=== PATIENT | female | born 2000 | race Caucasian/White ===

== ENCOUNTER 2023-05-01 10:01 | Outpatient (OUT) | payer SELFPAY ==
--- NOTE | 2023-05-01 | US_ITS ---
[address] [address] Patient Name: SARITA MARTINEZ MRN: [id number] date: 2000 Sex: F Assigned Patient Location: US Current Patient Location: US Accession/Order Number: [id number] Exam Date: 05/01/2023 10:04 Report Date: 05/01/2023 10:53 At the request of: APRIL ANDRADE Procedure: US OB transvaginal EXAMINATION: US OB transvaginal HISTORY: MISSED MENSES COMPARISON: No relevant comparison available. FINDINGS: Kidd intrauterine gestation Gestational sac: 2.1 cm, 7 weeks 4 days CRL: 1.3 cm, 7 weeks 3 days Yolk sac: 4.4 mm Heart rate: 160 bpm Cervix: Closed, 4.5 cm The uterus is normal, anteverted, anteflexed The ovaries are normal Clinical age: 9 weeks 4 days Clinical LILIANA: 11/30/2023 Ultrasound age: 7 weeks 3 days Ultrasound LILIANA: 12/15/2023 US/US OB transvaginal IMPRESSION: Viable kidd intrauterine gestation measuring 7 weeks 3 days Electronically authenticated by: MARY JO JOHNSON Date: 05/01/2023 10:53
== END 2023-05-01 10:02 | disposition home or self-care (01) ==
LOC: US 10:02
PROVIDERS: Visit Provider Obstetrics & Gynecology
DX: Z34.81 Encounter for supervision of other normal pregnancy, first trimester (principal); Z3A.01 Less than 8 weeks gestation of pregnancy; N92.6 Irregular menstruation, unspecified
CPT/HCPCS: 76817

== ENCOUNTER 2023-06-17 13:59 | Outpatient (OUT) | payer SELFPAY ==
--- OUTSIDE RECORDS SUMMARY | 2023-06-17 14:11 | XMS_ITS | CCD ---
Author Name Unknown Address [address] [place] [address] Organization [facility] Care Team Providers Care Computer Systems Security Administrator Name Role Phone APRIL ANDRADE Admitting Unavailable APRIL ANDRADE Attending Unavailable APRIL ANDRADE Consulting Unavailable RAYMOND, APRIL Attending Unavailable Problems Active Problems Problem Classification Problem Date Documented Da te Episodic/Chronic Residual codes; unclassified (1 source) 38 weeks gestation of ; 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: [38 WEEKS GESTATION OF ] Onset: 01-23-2017 Past or Other Problems Problem Classification Problem Date Documented Da te Episodic/Chronic Other aftercare (1 source) [facility] (current) use of anticoagulants; 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: [INTERMEDIATE CURRNT USE 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] Onset: 01-23-2017 Episodic Other circulatory disease (1 source) Personal history of transient ischemic attack (TIA), and cerebral infarction without residual deficits; 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: [PERS HX TIA AND CI NO RESID DEFICIT] Onset: 01-23-2017 Episodic Other complications of (4 sources) Other specified diseases and conditions complicating , childbirth and the puerperium; 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: [OTH DZ COMP PREG CHILDBIRTH PUERPER] Onset: 01-20-2017 Episodic Other complications of (1 source) Supervision of young primigravida, third trimester; 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: [SUP YOUNG PRIMIGRAVIDA THIRD TRI] Onset: 01-23-2017 Episodic Encounters Encounter Date Encounter Type Care Provider Facility Start: 06-01-2023 End: 06-01-2023 ambulatory APRIL RAYMOND Not Available Start: 05-01-2023 End: 05-01-2023 ambulatory APRIL RAYMOND Not Available Start: 01-20-2017 End: 01-20-2017 Patient encounter procedure APRIL RAYMOND Facility: Payers Date Payer Category Payer Unknown [id number] 2001 Unknown [id number] 1981 Unknown [id number] 1959 Unknown [id number] Summary Purpose Family History No Family History Records FoundNo Family History Records Found Advance Directives No Advanced Directives Records FoundNo Advanced Directives Records Found Additional Source Comments INFORMATION SOURCE (unrecogn ized section and content) DATE CREATED AUTHOR 07/31/2018 [facility] DATE CREATED AUTHOR AUTHOR'S ORGANIZ ATZHANNA 06/01/2023 [facility] FOR RECORDS PERTAINING TO PATIENTS WHO ARE OR HAVE BEEN ENROLLED IN A CHEMICAL DEPENDENCY/SUBSTANCEABUSE PROGRAM, SOME INFORMATION MAY BE OMITTED. This clinical summary was aggregated from multiple sources. Caution should be exercised in using it in the provision of clinical care. This summary normalizes information from multiple sources, and as a consequence, information in this document may materially change the coding, format and clinical context of patient data. In addition, data may be omitted in some cases. CLINICAL DECISIONS SHOULD BE BASED ON THE PRIMARY CLINICAL RECORDS. [facility] [employer] provides no warranty or guarantee of the accuracy or completeness of information in this document.
[2023-06-17 15:04] LABS: Estimated Average Glucose 91 mg/dL; Glycohemoglobin A1C 4.8 % (4.5-6.2)
[2023-06-17 15:44] LABS: Thyroid Stimulating Hormone 0.694 uIU/mL (0.358-3.740)
[2023-06-17 15:45] LABS: Basophils Absolute Auto 0.1 10^3/uL (0.0-0.1); Basophils Percent Auto 0.6 % (0.2-2.0); Eosinophils Absolute Auto 0.1 10^3/uL (0.0-0.7); Hematocrit 41.6 % (36.0-48.0); Hemoglobin 14.1 g/dL (12.0-16.0); Immature Granulocytes Abs Auto 0.03 10^3/uL (0.00-0.03); Immature Granulocytes Pct Auto 0.3 % (0.0-0.5); Lymphocytes Absolute Auto 1.7 10^3/uL (1.2-3.8); Lymphocytes Percent Auto 17.2 % (20.5-60.0); Mean Corpuscular HGB Conc 33.9 g/dL (29.9-35.2); Mean Corpuscular Hemoglobin 28.4 pg (26.7-34.0); Mean Corpuscular Volume 83.7 fL (81.0-99.0); Monocytes Absolute Auto 0.5 10^3/uL (0.3-0.8); Monocytes Percent Auto 4.9 % (1.7-12.0); Neutrophils Absolute Auto 7.4 10^3/uL (1.4-6.5); Platelet Count 231 10^3/uL (150-450); Red Blood Count 4.97 10^6/uL (4.20-5.40); Red Cell Distribution Width 13.4 % (11.0-15.0); White Blood Count 9.7 10^3/uL (4.0-11.0)
[2023-06-18 06:10] LABS: HIV Ab/p24 Ag Screen Non Reactive (Non Reactive); Rubella Antibodies, IgG 9.21 index (Immune >0.99)
[2023-06-18 07:11] LABS: HCV Ab Non Reactive (Non Reactive)
[2023-06-18 08:11] LABS: HBsAg Screen Negative (Negative)
[2023-06-18 10:09] LABS: Rapid Plasma Reagin, Quant Non Reactive titer (NonRea<1:1)
== END 2023-06-17 14:00 | disposition home or self-care (01) ==
LOC: LAB 14:00
PROVIDERS: Visit Provider Obstetrics & Gynecology
DX: N92.6 Irregular menstruation, unspecified (principal); Z36.0 Encounter for antenatal screening for chromosomal anomalies
CPT/HCPCS: 36415; 83036; 84443; 85025; 86592; 86762; 86803; 86850; 86900; 86901; 87086; 87340; 87389

== ENCOUNTER 2023-06-29 19:48 | Outpatient (REF) | payer SELFPAY ==
--- OUTSIDE RECORDS SUMMARY | 2023-06-29 19:52 | XMS_ITS | CCD ---
Author Name Unknown Address [address] [place] [address] Organization [facility] Care Team Providers Care Sales And Leasing Consultant Name Role Phone APRIL LIN Admitting Unavailable APRIL LIN Attending Unavailable APRIL LIN Consulting Unavailable APRIL LIN Attending Unavailable Zak Seals MD Primary Care Provider Problems Active Problems Problem Classification Problem Date Documented Da te Episodic/Chronic Other and delivery including normal (1 source) Second trimester ; 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: [Encounter for supervision of normal , unspecified, second trimester] 06-24-2023 Episodic Other screening for suspected conditions (not mental disorders or infectious disease) (1 source) Patient encounter status; 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: [Encounter for other specified screening] 06-29-2023 Episodic Residual codes; unclassified (1 source) 38 weeks gestation of ; 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: [38 WEEKS GESTATION OF ] Onset: 01-23-2017 Past or Other Problems Problem Classification Problem Date Documented Da te Episodic/Chronic Other aftercare (1 source) 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) use of anticoagulants; 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: [MAIL ROOM CURRNT USE 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] Onset: 01-23-2017 Episodic Other [...] YOUNG PRIMIGRAVIDA THIRD TRI] Onset: 01-23-2017 Episodic Results Test Name Value Interpretation Reference Range Facil ity Urinalysis macro (dipstick) panel (U)on 06-29-2023 Bilirubin, UA Negative Negative - 4(7 0) +++ mg/dL [facility] Blood, UA Negative Negative - 50 Mikey/mcL [facility] Clarity, UA Clear [facility] Color, UA Yellow [facility] Glucose, UA Negative Negative - 1999 (110) ++++ mg/dL [facility] Interpretation and review of laboratory results Normal [facility] Ketones, UA Negative Negative - 160( 16) ++++ mg/dL [facility] Leukocytes, UA Negative Negative - 50 0+++ Yoel/mcL [facility] Nitrite, UA Negative Negative - Positive [facility] pH, UA 5.5 5 - 9 [facility] Protein, UA Trace Negative - 1999 (20) ++++ mg/dL [facility] Spec Grav, UA 1.020 1 - 1.03 [facility] Urobilinogen, UA 1.0 0.2 - 12 mg/dL [facility] Vital Signs Date Time Vital Sign Value Performing Clinician [facility] 06-29-2023 09:34-0500 Body mass index (BMI) [Ratio] 26.06 kg/m2 Aparna DE LOS SANTOS Work Phone: [facility] 06-29-2023 09:34-0500 Body weight 68.86 kg Aparna DE LOS SANTOS Work Phone: [facility] 06-29-2023 09:34-0500 Diastolic blood pressure 72 mm[Hg] Aparna DE LOS SANTOS Work Phone: [facility] 06-29-2023 09:34-0500 Systolic blood pressure 106 mm[Hg] Aparna DE LOS SANTOS Work Phone: [facility] Encounters Encounter Date Encounter Type Care Provider Facility Start: 06-29-2023 End: 06-29-2023 Patient encounter procedure Aparna DE LOS SANTOS Work Phone: [facility] Start: 06-29-2023 End: 06-29-2023 Periodic preventive med est patient 18-39 yrs Aparna DE LOS SANTOS Work Phone: [facility] OB Comment on above: Second trimester pre gnancy; Screening, , for anatomic survey; Well woman exam with routine gynecological exam Start: 06-01-2023 End: 06-01-2023 ambulatory APRIL SPENCEO Not Available Start: 05-01-2023 End: 05-01-2023 ambulatory APRIL ALBRIGHTZIO Not Available Start: 01-20-2017 End: 01-20-2017 Patient encounter procedure APRIL ALBRIGHTZIO Facility: Procedures Date Procedure Procedure Detail Performing Clinician Start: 06-29-2023 Urnls dip stick/tabl et rgnt non-auto w/o micrscp Aparna DE LOS SANTOS Work Phone: Plan of Treatment Date Care Activity Detail Author Start: 07-28-2023 End: 07-28-2023 Patient encounter procedure 07/28/2023 10:40 AM EDT Routine [facility] [address] [place] [id number] April Lin, DO [address] [place], [place] [id number] [facility] Start: 07-28-2023 End: 07-28-2023 Professional / ancillary services management 07/28/2023 9:30 AM EDT Ancillary Procedure [facility] [address] [place] [id number] [facility] Start: 06-29-2023 End: 09-27-2023 Alpha fetoprotein, maternal Alpha fetoprotein, maternal Lab Routine Screening, , for anatomic survey Expected: 06/29/2023 (Approximate), Expires: 09/27/2023 [facility] Comment on above: Expected: 06/29/2023 (Approximate), Expires: 09/27/2023 Start: 06-29-2023 End: 06-29-2024 US for US OB ANATOMY SINGLE W US OB CERVICAL LENGTH Imaging Routine Screening, , for anatomic survey Expected: 06/29/2023 (Approximate), Expires: 06/29/2024 [facility] Comment on above: Expected: 06/29/2023 (Approximate), Expires: 06/29/2024 Cytology Cervical or vaginal smear or scraping study Pap Smear Pathology and Cytology Routine Well woman exam with routine gynecological exam Ordered: 06/29/2023 [facility] Work Phone: Comment on above: Ordered: 06/29/2023 Payers Date Payer Category Payer Medicaid [employer] [place] [employer] [id number] 2023-Present [address] [place] [address] [id number] 2001 Unknown [id number] 2001 Unknown [id number] 1981 Unknown [id number] 1959 Unknown [id number] Social History Date Type Detail Facility Tobacco smoking stat [facility] Tobacco smoking consumption unknown [facility] Start: 06-29-2023 Alcohol intake Defer [facility] Start: 03-24-2023 [facility] Start: 2000 Sex Assigned At Not on file [facility] Gender identity Not on file [facility] are History of Present illness Narrative 06-29-2023 MAGALI Black - 06/29/2023 9:30 AM EST Note Date & Type Note Facility 06-29-2023 History of Presen t illness Narrative Reason for Appointment: Patient ID: Miracle Huffman is a 23 y.o. female who presents for Routine Visit Patient presents today for Annual Exam and Return OB appointment. Current Medications: currently has no medications in their medication list. Medical History: Active Ambulatory Problems Diagnosis Date Noted No Active Ambulatory Problems Resolved Ambulatory Problems Diagnosis Date Noted No Resolved Ambulatory Problems Past Medical History: Diagnosis Date H/O: stroke No family history on file. Social History Tobacco Use Smoking status: Not on file Smokeless tobacco: Not on file Substance Use Topics Alcohol use: Defer Drug use: Not on file Past Surgical History: Procedure Laterality Date CT ANGIOGRAM NECK 05/17/2012 CT ANGIOGRAM NECK MR ANGIOGRAM HEAD W IV CONTRAST 05/16/2012 MR VENOUS HEAD W/ MR ANGIOGRAM HEAD W IV CONTRAST 05/19/2012 MR VENOUS HEAD W/ MR ANGIOGRAM HEAD WO IV CONTRAST 05/24/2012 MR ANGIOGRAM HEAD WO IV CONTRAST No Known Allergies Review of Systems: Review of Systems Constitutional: Negative. HENT: Negative. Eyes: Negative. Respiratory: Negative. Cardiovascular: Negative. Gastrointestinal: Negative. Genitourinary: Negative. Musculoskeletal: Negative. Skin: Negative. Neurological: Negative. All other systems reviewed and are negative. Hematological: Negative. Endocrine: Negative. Allergic/Immunologic: Negative. Objective Physical Exam Constitutional: Appearance: Normal appearance. She is normal weight. HENT: Head: Normocephalic. Cardiovascular: Rate and Rhythm: Normal rate. Pulses: Normal pulses. Pulmonary: Effort: Pulmonary effort is normal. Breath sounds: Normal breath sounds. Abdominal: Palpations: Abdomen is soft. Musculoskeletal: General: Normal range of motion. Neurological: General: No focal deficit present. Mental Status: She is alert and oriented to person, place, and time. Psychiatric: Mood and Affect: Mood normal. Behavior: Behavior normal. Thought Content: Thought content normal. Judgment: Judgment normal. Vitals and nursing note reviewed. Vitals: Estimated body mass index is 26.06 kg/m as calculated from the following: Height as of 02/24/23: 5' 4 . Weight as of this encounter: 151 lb 12.8 oz. BP: 106/72 Patient's last menstrual period was 02/23/2023. Assessment/Plan Encounter Diagnoses Name Primary? Second trimester Screening, , for anatomic survey Well woman exam with routine gynecological exam Patient presents today for an annual exam/routine obstetrics appointment. Patient is currently 15w6d . Patient is doing well and states she has no complaints. Pap/cultures was obtained without difficulty and patient was given [facility] order to have obtained. Follow Up: Patient is to return to our office in 4 weeks for routine OB appointment Documented by Liz Hernandez LPN on behalf of: MAGALI Black documented in this encounter [facility] Evaluation note Note Date & Type Note Facility Evaluation note Diagnosis Second trimester state, incidental Screening, , for anatomic survey Encounter for anatomic survey Well woman exam with routine gynecological exam Routine gynecological examination documented in this encounter [facility] Summary Purpose Family History No Family History Records FoundNo Family History Records Found Advance Directives No Advanced Directives Records FoundNo Advanced Directives Records Found Additional Source Comments INFORMATION SOURCE (unrecogn ized section and content) DATE CREATED AUTHOR 07/31/2018 [facility] DATE CREATED AUTHOR AUTHOR'S ORGANIZ ATION 06/01/2023 [facility] Specialists [employer] Reason for Visit (unrecogniz ed section and content) Reason Comments Routine Visit Care Teams (unrecognized sec tion and content) Sales And Leasing Consultant Relationship Specialty Start Date End Date Zak Seals MD [address] [place] [address] PCP - General Family Medicine 02/24/23 FOR RECORDS PERTAINING TO PATIENTS WHO ARE [...] BE BASED ON THE PRIMARY CLINICAL RECORDS. [facility] [employer] [facility]. provides no warranty or guarantee of the accuracy or completeness of information in this document.
[2023-07-03 11:12] LABS: Age Gdln ACOG Testing Note (.); IGP, rfx Aptima HPV ASCU Note (.)
== END 2023-06-29 19:49 | disposition home or self-care (01) ==
LOC: LAB 19:48
PROVIDERS: Visit Provider Physician Assistant
DX: Z01.419 Encounter for gynecological examination (general) (routine) without abnormal findings (principal)
CPT/HCPCS: G0145

== ENCOUNTER 2023-07-28 09:15 | Outpatient (OUT) | payer OTHER, SELFPAY ==
--- NOTE | 2023-07-28 09:16 | US_ITS ---
[address] [address] Patient Name: SARITA MARTINEZ MRN: [id number] date: 2000 Sex: F Assigned Patient Location: [facility] Current Patient Location: LAB Accession/Order Number: [id number] Exam Date: 07/28/2023 09:17 Report Date: 07/28/2023 11:25 At the request of: TREY KRAUSE Procedure: US OB cervical length EXAMINATION: US OB anatomy, US OB cervical length HISTORY: ANATOMY COMPARISON: No relevant comparison available. TECHNIQUE: Transabdominal sonographic examination was performed for obstetrical and evaluation. FINDINGS: Number: 1 Heart Rate: 151.0 bpm H.B. /min Amniotic Fluid Volume: Subjectively normal Placental Location: Posterior, the placental edge is 4.1 cm from the internal os, grade 0 Cervix Length: 5 cm , closed Normal anatomy: Lateral ventricles, cerebellum, posterior fossa, nose, lips, orbits, four-chamber heart, RVOT, LVOT, diaphragm, stomach, kidneys, abdominal cord insertion, bladder, umbilical arteries, three-vessel cord, spine, extremities BIOMETRY: BPD: 4.8 cm 20 weeks 3 days , 70% HC: 18.2 cm 20 weeks 4 days, 69% AC: 14.8 cm 20 weeks 0 days, 46% FL: 3.5 cm 20 weeks 6 days , 74% EFW:355.1 grams; 13 ounces, 72% FL/AC: 23.4 FL/BPD: 72.2 HC/AC: 1.2 GESTATIONAL AGE: Age by EDC: 20 weeks 0 days Age by current US: 20 weeks 3 days LILIANA by current US: 12/12/2023 LILIANA by EDC: 12/15/2023 US/US OB cervical length IMPRESSION: Normal anatomy scan Closed cervix measuring 5 cm in length *Reference: [employer] Practice Guideline for the performance of Obstetric Ultrasound Examinations, February 15, 2007. Electronically authenticated by: MARY JO JOHNSON Date: 07/28/2023 11:25
--- NOTE | 2023-07-28 09:17 | US_ITS ---
[address] [address] Patient Name: SARITA MARTINEZ MRN: [id number] date: 2000 Sex: F Assigned Patient Location: [facility] Current Patient Location: LAB Accession/Order Number: [id number] Exam Date: 07/28/2023 09:17 Report Date: 07/28/2023 11:25 At the request of: TREY KRAUSE Procedure: US OB anatomy EXAMINATION: US OB anatomy, US OB cervical length HISTORY: ANATOMY COMPARISON: No relevant comparison available. TECHNIQUE: Transabdominal sonographic examination was performed for obstetrical and evaluation. FINDINGS: Number: 1 Heart Rate: 151.0 bpm H.B. /min Amniotic Fluid Volume: Subjectively normal Placental Location: Posterior, the placental edge is 4.1 cm from the internal os, grade 0 Cervix Length: 5 cm , closed Normal anatomy: Lateral ventricles, cerebellum, posterior fossa, nose, lips, orbits, four-chamber heart, RVOT, LVOT, diaphragm, stomach, kidneys, abdominal cord insertion, bladder, umbilical arteries, three-vessel cord, spine, extremities BIOMETRY: BPD: 4.8 cm 20 weeks 3 days , 70% HC: 18.2 cm 20 weeks 4 days, 69% AC: 14.8 cm 20 weeks 0 days, 46% FL: 3.5 cm 20 weeks 6 days , 74% EFW:355.1 grams; 13 ounces, 72% FL/AC: 23.4 FL/BPD: 72.2 HC/AC: 1.2 GESTATIONAL AGE: Age by EDC: 20 weeks 0 days Age by current US: 20 weeks 3 days LILIANA by current US: 12/12/2023 LILIANA by EDC: 12/15/2023 US/US OB anatomy IMPRESSION: Normal anatomy scan Closed cervix measuring 5 cm in length *Reference: [employer] Practice Guideline for the performance of Obstetric Ultrasound Examinations, February 15, 2007. Electronically authenticated by: MARY JO JOHNSON Date: 07/28/2023 11:25
== END 2023-07-28 09:16 | disposition home or self-care (01) ==
LOC: NOMS 09:15
PROVIDERS: Visit Provider Physician Assistant
DX: Z36.89 Encounter for other specified antenatal screening (principal); Z3A.20 20 weeks gestation of pregnancy
CPT/HCPCS: 76805; 76817

== ENCOUNTER 2023-07-28 11:22 | Outpatient (OUT) | payer OTHER, SELFPAY ==
[2023-07-31 02:07] LABS: AFP Value 59.1 ng/mL (.); Gestat. Age Based On Ultrasound (.); Insulin Dep Diabetes No (.); Maternal Age At EDD 22.8 yr (.); OSBR Risk 1 IN 10000 (.); Results Report (.)
== END 2023-07-28 11:23 | disposition home or self-care (01) ==
PROVIDERS: Visit Provider Obstetrics & Gynecology
DX: Z34.92 Encounter for supervision of normal pregnancy, unspecified, second trimester (principal); Z36.89 Encounter for other specified antenatal screening; Z3A.20 20 weeks gestation of pregnancy
CPT/HCPCS: 36415; 76805; 76817; 82105

== ENCOUNTER 2023-09-23 11:47 | Outpatient (OUT) | payer OTHER, SELFPAY ==
[2023-09-23 13:45] LABS: Glucose 1 Hour 108 mg/dL (<130)
[2023-09-23 13:50] LABS: Basophils Percent Auto 0.4 % (0.2-2.0); Eosinophils Absolute Auto 0.1 10^3/uL (0.0-0.7); Eosinophils Percent Auto 1.2 % (0.9-7.0); Immature Granulocytes Abs Auto 0.03 10^3/uL (0.00-0.03); Immature Granulocytes Pct Auto 0.3 % (0.0-0.5); Lymphocytes Absolute Auto 1.5 10^3/uL (1.2-3.8); Lymphocytes Percent Auto 16.6 % (20.5-60.0); Mean Corpuscular HGB Conc 33.3 g/dL (29.9-35.2); Mean Corpuscular Hemoglobin 27.6 pg (26.7-34.0); Mean Corpuscular Volume 82.9 fL (81.0-99.0); Mean Platelet Volume 11.7 fL (9.5-13.5); Monocytes Absolute Auto 0.5 10^3/uL (0.3-0.8); Neutrophils Percent Auto 76.5 % (43.0-75.0); Platelet Count 223 10^3/uL (150-450); Red Blood Count 3.98 10^6/uL (4.20-5.40); Red Cell Distribution Width 12.1 % (11.0-15.0); White Blood Count 9.2 10^3/uL (4.0-11.0)
== END 2023-09-23 11:48 | disposition home or self-care (01) ==
LOC: LAB 11:49
PROVIDERS: Visit Provider Physician Assistant
DX: Z13.1 Encounter for screening for diabetes mellitus (principal)
CPT/HCPCS: 36415; 82950; 85025

== ENCOUNTER 2023-11-18 21:18 | Outpatient (REF) | payer OTHER, SELFPAY ==
--- OUTSIDE RECORDS SUMMARY | 2023-11-18 21:23 | XMS_ITS ---
Patient Summarization (C-CDA 2.1 CCD) Created on: November 18, 2023 MIRACLE HUFFMAN : 2000 Sex: Female Author Organization Sample organization Care Team Providers Care Ordnance Mechanic Name Role Phone RAYMOND, APRIL Admitting Unavailable RAYMOND, APRIL Attending Unavailable RAYMOND, APRIL Consulting Unavailable Mary Jo Rondon MD Primary Care Provider RAYMOND, APRIL Attending Unavailable NELIDA, APARNA Attending Unavailable RAYMOND, APRIL Attending Unavailable NELIDA, APARNA Attending Unavailable RAYMOND, APRIL Attending Unavailable RAYMOND, APRIL Attending Unavailable NELIDA, APARNA Attending Unavailable RAYMOND, APRIL Attending Unavailable MAGUE HOU Referring Unavailable MARY JO RONDON Primary Care Unavailable Encounters Encounter Date Encounter Type Care Provider Facility Start: 11-04-2023 End: 11-04-2023 ambulatory APRIL RAYMOND Not Available Start: 10-21-2023 End: 10-21-2023 ambulatory APARNA NELIDA Not Available Start: 10-06-2023 End: 10-06-2023 ambulatory APRIL RAYMOND Not Available Start: 09-23-2023 End: 09-23-2023 ambulatory APRIL RAYMOND Not Available Start: 08-27-2023 End: 08-27-2023 ambulatory MAGUE HOU [facility] Start: 08-26-2023 End: 08-26-2023 ambulatory APARNA NELIDA Not Available Start: 07-28-2023 End: 07-28-2023 ambulatory APRIL RAYMOND Not Available Start: 06-29-2023 External Result Encounter Aparna DE LOS SANTOS Work Phone: [facility] External Department Unsolicited Start: 06-29-2023 External Result Encounter Aparna DE LOS SANTOS Work Phone: [facility] External Department Unsolicited Start: 06-29-2023 End: 06-29-2023 Patient encounter procedure Aparna DE LOS SANTOS Work Phone: [facility] Start: 06-29-2023 End: 06-29-2023 Periodic preventive med est patient 18-39 yrs Aparna DE LOS SANTOS Work Phone: [facility] Comment on above: Second trimester pre gnancy; Screening, , for anatomic survey; Well woman exam with routine gynecological exam Start: 06-29-2023 End: 06-29-2023 ambulatory APARNA MONTGOMERYEY Not Available Start: 06-01-2023 End: 06-01-2023 ambulatory APRIL SPENCEO Not Available Start: 05-01-2023 End: 05-01-2023 ambulatory APRIL RAYMOND Not Available Start: 01-20-2017 End: 01-20-2017 Patient encounter procedure APRIL RAYMOND Facility: Payers Date Payer Category Payer Medicaid [id number] 2000 Unknown [id number] 2.16.84 [id number] 2001 Unknown [id number] 2.16.84 0.1.985960.3.579.2.1258 2001 Unknown [id number] 2.16.84 0.1.203607.3.579.2.1258 2001 Unknown [id number] 2.16.84 0.1.958579.3.579.2.1258 2001 Unknown [id number] 2.16.84 0.1.325121.3.579.2.1259 2001 Unknown [id number] 2.16.84 0.1.964830.3.579.2.1258 2001 Unknown [id number] 2.16.84 0.1.928997.3.579.2.1258 2001 Unknown [id number] 2.16.84 0.1.260098.3.579.2.1258 2001 Unknown [id number] 2.16.840 .1.598522.3.579.2.1259 2001 Unknown [id number] 2.16. [id number] 1981 Unknown [id number] 2.16.84 0.1.226157.3.579.2.593 1959 Unknown [id number] Plan of Treatment Date Care Activity Detail Author Start: 07-28-2023 End: 07-28-2023 Patient encounter procedure 07/28/2023 10:40 AM EDT Routine [facility] [address] [id number] April Lin, DO [address] [place], [place] [id number] [facility] Start: 07-28-2023 End: 07-28-2023 Professional / ancillary services management 07/28/2023 9:30 AM EDT Ancillary Procedure [facility] [address] [place] [id number] [facility] Start: 06-29-2023 End: 09-27-2023 Alpha fetoprotein, maternal Alpha fetoprotein, maternal Lab Routine Screening, , for anatomic survey Expected: 06/29/2023 (Approximate), Expires: 09/27/2023 [facility] Comment on above: Expected: 06/29/2023 (Approximate), Expires: 09/27/2023 Start: 06-29-2023 End: 06-29-2024 US for US OB ANATOMY SINGLE W US OB CERVICAL LENGTH Imaging Routine Screening, , for anatomic survey Expected: 06/29/2023 (Approximate), Expires: 06/29/2024 [facility] Comment on above: Expected: 06/29/2023 (Approximate), Expires: 06/29/2024 Cytology Cervical or vaginal smear or scraping study Pap Smear Pathology and Cytology Routine Well woman exam with routine gynecological exam Ordered: 06/29/2023 [facility] Work Phone: Comment on above: Ordered: 06/29/2023 Problems Active Problems Problem Classification Problem Date Documented Da te Episodic/Chronic Contraceptive and procreative management (2 sources) Encounter of female for testing for genetic disease carrier status for procreative management; 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: [Encounter of female for testing for genetic disease carrier status for procreative management] Onset: 08-27-2023 Episodic Other complications of (2 sources) Supervision of other high risk pregnancies, second trimester; 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: [Supervision of other high risk pregnancies, second trimester] Onset: 08-27-2023 Episodic Other and delivery including normal (1 source) [...] Da te Episodic/Chronic Other aftercare (1 source) 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; 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: [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] Onset: 01-23-2017 Episodic Other [...] YOUNG PRIMIGRAVIDA THIRD TRI] Onset: 01-23-2017 Episodic Procedures Date Procedure Procedure Detail Performing Clinician Start: 06-29-2023 URETHRITIS/DISCHARGE PLUS VAGINITIS (HTRX) Aparna DE LOS SANTOS Work Phone: Start: 06-29-2023 Urnls dip stick/tabl et rgnt non-auto w/o micrscp Aparna DE LOS SANTOS Work Phone: Results Test Name Value Interpretation Reference Range Facil ity Miscellaneouson 08-28-2023 Send Out Report FORWARD TO [facility] Comment on above: Performed By: #### C MIS #### [facility] [employer] [address] [place], [place] [id number] Gettering Operator: Arturo Chapin MD Miscellaneouson 08-27-2023 Test Name [facility] Comment on above: Performed By: #### C MIS #### [facility] [employer] [address] [place], [place] [id number] Gettering Operator: Arturo Chapin MD URETHRITIS/DISCHARGE PLUS VA GINITIS (HTRX)on 07-01-2023 ATOPOBIUM VAGINAE 0 [facility] ATOPOBIUM VAGINAE [facility]3 (BACTERIAL VAGINOSIS ASSOCIATED BACTERIA 2, 3); MOBILUNCUS SPP 0 [facility] BVAB 2,3 (BACTERIAL VAGINOSIS ASSOCIATED BACTERIA 2, 3); MOBILUNCUS SPP Not detected [facility] FELIPE ALBICANS, PARAPSILOSIS, TROPICALIS 0 [facility] FELIPE ALBICANS, PARAPSILOSIS, TROPICALIS Not detected [facility] FELIPE GLABRATA 0 [facility] FELIPE GLABRATA Not detected [facility] FELIPE KRUSEI 0 [facility] FELIPE KRUSEI Not detected N[facility] CHLAMYDIA TRACHOMATIS 0 [facility] CHLAMYDIA TRACHOMATIS Not detected N [facility] GARDNERELLA VAGINALIS 0 [facility] GARDNERELLA VAGINALIS Not detected [facility] MEGASPHAERA (TYPES 1, 2) 0 [facility] MEGASPHAERA (TYPES 1, 2) Not detected [facility] MYCOPLASMA GENITALIUM 0 [facility] MYCOPLASMA GENITALIUM Not detected [facility] NEISSERIA GONORRHOEAE 0 [facility] NEISSERIA GONORRHOEAE Not detected N [facility] TRICHOMONAS VAGINALIS 0 [facility] TRICHOMONAS VAGINALIS Not detected [facility] Urinalysis macro (dipstick) panel (U)on 06-29-2023 Bilirubin, UA Negative Negative - 4(70) +++ mg/dL [facility] Blood, UA Negative Negative - 50 Mikey/mcL [facility] Clarity, UA Clear [facility] Color, UA Yellow [facility] Glucose, UA Negative Negative - 2000(110) ++++ mg/dL [facility] Interpretation and review of laboratory results Normal [facility] Ketones, UA Negative Negative - 160(16) ++++ mg/dL [facility] Leukocytes, UA Negative Negative - 500+++ Yoel/mcL [facility] Nitrite, UA Negative Negative - Positive [facility] pH, UA 5.5 5 - 9 [facility] Protein, UA Trace Negative - 1999(20) ++++ mg/dL [facility] Spec Grav, UA 1.020 1 - 1.03 [facility] Urobilinogen, UA 1.0 0.2 - 12 mg/dL [facility] Social History Date Type Detail Facility Start: 06-29-2023 Alcohol intake Defer [facility] Start: 03-24-2023 [facility] Start: 2000 Sex Assigned At Not on file N [facility] Tobacco smoking stat [facility] Tobacco smoking consumption unknown [facility] Gender identity Not on file [facility] are Vital Signs Date Time Vital Sign Value Performing Clinician Faci lity 06-29-2023 09:34-0500 Body mass index (BMI) [Ratio] 26.06 kg/m2 Aparna DE LOS SANTOS Work Phone: [facility] 06-29-2023 09:34-0500 Body weight 68.86 kg Aparna DE LOS SANTOS Work Phone: [facility] 06-29-2023 09:34-0500 Diastolic blood pressure 72 mm[Hg] Aparna DE LOS SANTOS Work Phone: [facility] 06-29-2023 09:34-0500 Systolic blood pressure 106 mm[Hg] Aparna DE LOS SANTOS Work Phone: [facility] History of Present illness Narrative 06-29-2023 MAGALI [...] obtained without difficulty and [facility]. Follow Up: Patient [...] Family History Records FoundNo Family History Records FoundNo Family History Records Found Advance Directives No Advanced Directives Records FoundNo Advanced Directives Records FoundNo Advanced Directives Records Found Additional Source Comments INFORMATION SOURCE (unrecogn ized section and content) DATE CREATED AUTHOR 07/31/2018 [facility] DATE CREATED AUTHOR AUTHOR'S ORGANIZ ATION 11/06/2023 [facility] EPIC DATE CREATED AUTHOR AUTHOR'S ORGANIZ ATION 11/13/2023 [facility] Reason for Visit (unrecogniz ed section and content) Reason Comments Routine Visit Care Teams (unrecognized sec tion and content) Ordnance Mechanic Relationship Specialty Start Date End Date Mary Jo Rondon MD [address] [place] [address] PCP - General Family Medicine 02/24/23 Ordnance Mechanic Relationship Specialty Start Date End Date Mary Jo Rondon MD [address] [place] [address] PCP - General Family Medicine 02/24/23 FOR [...] BE BASED ON THE PRIMARY CLINICAL RECORDS. [facility] [employer] [facility]. provides no warranty or guarantee of the accuracy or completeness of information in this document.
== END 2023-11-18 21:19 | disposition home or self-care (01) ==
LOC: LAB 21:18
PROVIDERS: Visit Provider Obstetrics & Gynecology
DX: Z34.93 Encounter for supervision of normal pregnancy, unspecified, third trimester (principal)
CPT/HCPCS: 87081

== ENCOUNTER 2023-12-01 04:55 | Inpatient (IN) | payer OTHER, SELFPAY ==
[2023-12-01] VITALS (61 sets, daily range): BP systolic 93–152; BP diastolic 53–105; PULSE 0–107; TEMP 35.8–37; O2SAT 95–97
--- OUTSIDE RECORDS SUMMARY | 2023-12-01 04:59 | XMS_ITS | CCD ---
Author Organization [facility] Inform ion Partnership [facility] Care Team Providers Care Razor Grinder Name Role Phone APRIL LIN Admitting Unavailable RAYMOND, APRIL Attending Unavailable APRIL LIN Consulting Unavailable Mary Jo Rondon MD Primary Care Provider [phone] MAGUE HOU Referring Unavailable MARY JO RONDON Primary Care Unavailable RAYMOND, APRIL Attending Unavailable NELIDA, APARNA Attending Unavailable RAYMOND, APRIL Attending Unavailable NELIDA, APARNA Attending Unavailable RAYMOND, APRIL Attending Unavailable RAYMOND, APRIL Attending Unavailable NELIDA, APARNA Attending Unavailable RAYMOND, APRIL Attending Unavailable RAYMOND, APRIL Attending Unavailable Problems Active [...] Da te Episodic/Chronic Other aftercare (1 source) 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; 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: [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] Onset: 01-23-2017 Episodic Other [...] Results Test Name Value Interpretation Reference Range [facility] 08-28-2023 Send Out Report FORWARD TO [facility] Comment on above: Performed By: #### C MIS #### [address] [id number] Compensation Consulting Manager: Arturo Chapin MD [facility] 08-27-2023 Test Name [facility] Comment on above: Performed By: #### C MIS #### [address] [id number] Compensation Consulting Manager: Arturo Chapin MD URETHRITIS/DISCHARGE PLUS VA GINITIS (HTRX)on 07-01-2023 ATOPOBIUM VAGINAE 0 [facility] ATOPOBIUM VAGINAE Not detected [facility] (BACTERIAL VAGINOSIS ASSOCIATED BACTERIA 2, 3); MOBILUNCUS SPP 0 [facility] BVAB 2,3 (BACTERIAL VAGINOSIS ASSOCIATED BACTERIA 2, 3); MOBILUNCUS SPP Not detected [facility] FELIPE ALBICANS, PARAPSILOSIS, TROPICALIS 0 [facility] FELIPE ALBICANS, PARAPSILOSIS, TROPICALIS Not detected [facility] FELIPE GLABRATA 0 [facility] FELIPE GLABRATA Not detected [facility] FELIPE KRUSEI 0 [facility] FELIPE KRUSEI Not detected N[facility] CHLAMYDIA TRACHOMATIS 0 [facility] CHLAMYDIA TRACHOMATIS Not detected [facility] GARDNERELLA VAGINALIS 0 [facility] GARDNERELLA VAGINALIS Not detected N [facility] MEGASPHAERA (TYPES 1, 2) 0 [facility] MEGASPHAERA (TYPES 1, 2) Not detected [facility] MYCOPLASMA GENITALIUM 0 [facility] S [facility] MYCOPLASMA GENITALIUM Not detected N [facility] NEISSERIA GONORRHOEAE 0 [facility] NEISSERIA GONORRHOEAE Not detected N [facility] TRICHOMONAS VAGINALIS 0 [facility] TRICHOMONAS VAGINALIS Not detected N [facility] Urinalysis macro (dipstick) panel (U)on 06-29-2023 Bilirubin, UA Negative Negative - 4(70) +++ mg/dL [facility] Blood, UA Negative Negative - 50 Mikey/mcL [facility] Clarity, UA Clear [facility] re Color, UA Yellow [facility] Glucose, UA Negative Negative - 1999(110) ++++ mg/dL [facility] Interpretation and review of laboratory results Normal [facility] Ketones, UA Negative Negative - 160(16) ++++ mg/dL [facility] Leukocytes, UA Negative Negative - 500+++ Yoel/mcL [facility] Nitrite, UA Negative Negative - Positive [facility] pH, UA 5.5 5 - 9 [facility] Protein, UA Trace Negative - 1999(20) ++++ mg/dL [facility] Spec Grav, UA 1.020 1 - 1.03 [facility] Urobilinogen, UA 1.0 0.2 - 12 [facility]dL [facility] Vital Signs Date Time Vital Sign Value Performing Clinician Faci lity 06-29-2023 09:34-0500 Body mass index (BMI) [Ratio] 26.06 kg/m2 Aparna DE LOS SANTOS Work Phone: [facility] 06-29-2023 09:34-0500 Body weight 68.86 kg Aparna DE LOS SANTOS Work Phone: [facility] 06-29-2023 09:34-0500 Diastolic blood pressure 72 mm[Hg] Aparna DE LOS SANTOS Work Phone: [facility] 06-29-2023 09:34-0500 Systolic blood pressure 106 mm[Hg] Apanra DE LOS SANTOS Work Phone: [facility] Encounters Encounter Date Encounter Type Care Provider Facility Start: 11-18-2023 End: 11-18-2023 ambulatory APRIL RAYMOND Not Available Start: 11-04-2023 End: 11-04-2023 ambulatory APRIL RAYMOND Not Available Start: 10-21-2023 End: 10-21-2023 ambulatory APARNA KRAUSE Not Available Start: 10-06-2023 End: 10-06-2023 ambulatory APRIL RAYMOND Not Available Start: 09-23-2023 End: 09-23-2023 ambulatory APRIL RAYMOND Not Available Start: 08-27-2023 End: 08-27-2023 ambulatory MAGUE HOU [facility] Start: 08-26-2023 End: 08-26-2023 ambulatory APARNA KRAUSE Not Available Start: 07-28-2023 End: 07-28-2023 ambulatory APRIL RAYMOND Not Available Start: 06-29-2023 External Result Encounter Aparna DE LOS SANTOS Work Phone: [facility] External Department Unsolicited Start: 06-29-2023 External Result Encounter Aparna DE LOS SANTOS Work Phone: [facility] External Department Unsolicited Start: 06-29-2023 End: 06-29-2023 Patient encounter procedure Aparna DE LOS SANTOS Work Phone: [facility] Start: 06-29-2023 End: 06-29-2023 Periodic preventive med est patient 18-39 yrs Aparna DE LOS SANTOS Work Phone: [facility] Comment on above: Second trimester pre gnancy; Screening, , for anatomic survey; Well woman exam with routine gynecological exam Start: 06-29-2023 End: 06-29-2023 ambulatory APARNA KRAUSE Not Available Start: 06-01-2023 End: 06-01-2023 ambulatory APRIL ARYMOND Not Available Start: 05-01-2023 End: 05-01-2023 ambulatory APRIL RAYMOND Not Available Start: 01-20-2017 End: 01-20-2017 Patient encounter procedure APRIL RAYMOND Facility:H1 Procedures Date Procedure Procedure Detail Performing Clinician Start: 06-29-2023 URETHRITIS/DISCHARGE PLUS VAGINITIS (HTRX) Aparna DE LOS SANTOS Work Phone: Start: 06-29-2023 Urnls dip stick/tabl et rgnt non-auto w/o micrscp Aparna DE LOS SANTOS Work Phone: Plan of Treatment Date Care Activity Detail Author Start: 07-28-2023 End: 07-28-2023 Patient encounter procedure 07/28/2023 10:40 AM EDT Routine [facility] [address] [place] [phone] April Lin, DO [address] [place] [address] [facility] Start: 07-28-2023 End: 07-28-2023 Professional / ancillary services management 07/28/2023 9:30 AM EDT Ancillary Procedure [facility] [address] [place] [address] [facility] Start: 06-29-2023 End: 09-27-2023 Alpha fetoprotein, maternal Alpha fetoprotein, maternal Lab Routine Screening, , for anatomic survey Expected: 06/29/2023 (Approximate), Expires: 09/27/2023 [facility] Comment on above: Expected: 06/29/2023 (Approximate), Expires: 09/27/2023 Start: 06-29-2023 End: 06-29-2024 US for US OB ANATOMY SINGLE W US OB CERVICAL LENGTH Imaging Routine Screening, , for anatomic survey Expected: 06/29/2023 (Approximate), Expires: 06/29/2024 [facility] Comment on above: Expected: 06/29/2023 (Approximate), Expires: 06/29/2024 Cytology Cervical or vaginal smear or scraping study Pap Smear Pathology and Cytology Routine Well woman exam with routine gynecological exam Ordered: 06/29/2023 [facility] Work Phone: Comment on above: Ordered: 06/29/2023 Payers Date Payer Category Payer Medicaid [id number] 2001 Unknown [id number] 2.16. [id number] 2001 Unknown [id number] 2.16.84 0.1.214077.3.579.2.1259 2001 Unknown [id number] 2.16.84 0.1.351917.3.579.2.1259 2001 Unknown [id number] 2.16.84 0.1.141418.3.579.2.1259 2001 Unknown [id number] 2.16.84 0.1.286465.3.579.2.1259 2001 Unknown [id number] 2.16.84 0.1.759269.3.579.2.1259 2001 Unknown [id number] 2.16.84 0.1.736582.3.579.2.1259 2001 Unknown [id number] 2.16.84 0.1.430149.3.579.2.1259 2001 Unknown [id number] 2.16.84 0.1.673474.3.579.2.1259 2001 Unknown [id number] 2.16.84 0.1.065424.3.579.2.1259 2001 Unknown [id number] 2.16.840 .1.455774.3.579.2.1259 1981 Unknown [id number] 2.16.84 0.1.873435.3.579.2.593 1959 Unknown [id number] Social History Date Type Detail Facility Tobacco smoking stat [facility] Tobacco smoking consumption unknown [facility] Start: 06-29-2023 Alcohol intake Defer [facility] Start: 03-24-2023 [facility] Start: 2000 Sex Assigned At Not on file N [facility] Gender identity Not on file [facility] History of Present illness Narrative [...] obtained without difficulty and [facility]. Follow [...] DATE CREATED [facility]31/2018 [facility] DATE CREATED AUTHOR AUTHOR'S ORGANIZ ATION 11/13/2023 [facility] DATE CREATED AUTHOR AUTHOR'S ORGANIZ ATION 11/19/2023 [facility] EPIC Reason for Visit (unrecogniz ed section and content) Reason Comments Routine Visit Care Teams (unrecognized sec tion and content) Razor Grinder Relationship Specialty Start Date End Date Mary Jo Rondon MD [address] [place] [address] PCP - General Family Medicine 02/24/23 Razor Grinder Relationship Specialty Start Date End Date Mary Jo Rondon MD [address] [place] [address] PCP - General Family Medicine 02/24/23 FOR [...] ON THE PRIMARY CLINICAL RECORDS. [facility] [employer] [facility]. provides no warranty or guarantee of the accuracy or completeness of information in this document.
[2023-12-01] MEDS: 0.9 % SODIUM CHLORIDE 1,000 ML 125 ML IV ×3 (05:45→13:45)
[2023-12-01 05:50] LABS: Hematocrit 35.5 % (36.0-48.0); Hemoglobin 11.3 g/dL (12.0-16.0); Mean Corpuscular HGB Conc 31.8 g/dL (29.9-35.2); Mean Corpuscular Hemoglobin 24.5 pg (26.7-34.0); Mean Platelet Volume 12.9 fL (9.5-13.5); Platelet Count 216 10^3/uL (150-450); Red Blood Count 4.61 10^6/uL (4.20-5.40); Red Cell Distribution Width 13.4 % (11.0-15.0); White Blood Count 9.9 10^3/uL (4.0-11.0)
[2023-12-01] MEDS: OXYTOCIN/0.9 % SODIUM CHLORIDE 10 UNITS/500 ML PLAST..BAG 6 UNIT IV (06:00)
[2023-12-01 06:04] LABS: Amphetamine Screen Urine NEGATIVE (NEGATIVE); Barbiturates Screen Urine NEGATIVE (NEGATIVE); Benzodiazepines Screen Urine NEGATIVE (NEGATIVE); Buprenorphine Screen Urine NEGATIVE (NEGATIVE); Cannabinoid Screen Urine NEGATIVE (NEGATIVE); Cocaine Screen Urine NEGATIVE (NEGATIVE); Methadone Screen Urine NEGATIVE (NEGATIVE); Methamphetamines Screen Urine NEGATIVE (NEGATIVE); Opiate Screen Urine NEGATIVE (NEGATIVE); Oxycodone Screen Urine NEGATIVE (NEGATIVE); Phencyclidine Screen Urine NEGATIVE (NEGATIVE); Tricyclic Antidepressant Urine NEGATIVE (NEGATIVE)
[2023-12-01] MEDS: ROPIVACAINE HCL/PF 400 MG/200 ML PREMIX 8 MG EPIDURAL (10:25)
[2023-12-01] MEDS: ONDANSETRON PF 4 MG/2 ML VIAL IV (13:33)
[2023-12-01] MEDS: METOCLOPRAMIDE HCL 10 MG/2 ML VIAL IVP (15:28)
[2023-12-01] MEDS: CEFAZOLIN SODIUM/DEXTROSE,ISO 2 GM/50 ML PIGGYBACK IV ×2 (15:28→22:25)
[2023-12-01] MEDS: CITRIC ACID/SODIUM CITRATE 30 ML SOLUTION ORACIT SHOHL'S SOLN PO (15:28)
[2023-12-01] MEDS: FAMOTIDINE/PF 20 MG/2 ML VIAL IV (15:28)
--- NOTE | 2023-12-01 16:10 | PM.ONB ---
Brief Operative Note Date of procedure: 12/01/23 Pre-op diagnosis general: iup at term gestation, ho stroke with loss of rt arm movement, maternal anxiety, recurrent heart decelerations Post-op diagnosis: same as pre-op Procedure: NAME OF PROCEDURE: [ section ] PROCEDURE: Patient was taken back to the Operating Room where she was given a spinal anesthesia with Duramorph without difficulty. She was prepped and draped in the normal sterile fashion. A Pfannenstiel skin incision was then made 2 cm above the symphysis pubis and carried down to underlying rectus fascia using a Bovie. The fascia was incised in the midline and extended laterally using Lovell scissors. Two Mona clamps were placed on the superior aspect of the fascia and dissected off the underlying rectus muscles. The same was performed on the inferior aspect as well. The muscles were then in the midline. Peritoneum was identified and entered bluntly. The peritoneum was then extended superiorly and inferiorly with good visualization of the bladder. The bladder blade was inserted. A low transverse incision was made on the patient's uterus and extended laterally digitally. The was then delivered atraumatically after the bladder blade was removed in the cephalic position. The cord was clamped and cut. Cord blood was obtained. The was handed off to awaiting team. The patient's placenta was spontaneously delivered. The uterus was then exteriorized. The uterus was cleared of all clots and debris. The bladder blade was reinserted. The patient's uterine incision was closed using #0 Vicryl in a running lock fashion. Excellent hemostasis was assured. The uterus was then returned to the patient's abdomen. The patient's abdomen was copiously irrigated using warm saline. Peritoneal gutters were cleared of all clots and debris. Again excellent hemostasis was assured. The patient's peritoneum was closed using 3-0 Vicryl in a running fashion. The patient's fascia was closed using #0 Vicryl in a running fashion. The patient's skin was closed using 4-0 Vicryl subcuticularly. The patient tolerated the procedure well. Sponge, lap, and needle counts were correct x2. The patient was taken to the Recovery Room in stable condition. Anesthesia: spinal Surgeon: Kameron Lin Compensation Intern: Lakshmi Sampson Estimated blood loss (mL): 575 Pathology: other (placenta) Disposition: floor Urinary Catheter Management Urinary Catheter Management Urethral: Cath placed during this visit: no
--- NOTE | 2023-12-01 16:13 | PM.OBPRCCS ---
Procedure Pre-op/Post-op diagnoses: Pre-Op/Post-Op Diagnoses Operation Date: 12/01/23 15:30 <No data on this case meets the specified criteria> Procedure: Procedures Operation Date: 12/01/23 15:30 Actual Procedure Side Surgeon p with delivery of viable baby girl Not Applicable Kameron Lin DO Estimated blood loss (mL): 575 Disposition: PACU Anesthesia type: Spinal
[2023-12-01] MEDS: OXYTOCIN/0.9 % SODIUM CHLORIDE 20 UNITS/1,000 ML PLAST..BAG 125 UNIT IV (16:47)
[2023-12-01] MEDS: KETOROLAC TROMETHAMINE 30 MG/ML VIAL IVP (22:25)
[2023-12-01] MEDS: ONDANSETRON 4 MG RAPDIS TABLET SL (23:15)
[2023-12-01] MEDS: ACETAMINOPHEN 500 MG TABLET 1000 MG PO (23:15)
[2023-12-02] VITALS (8 sets, daily range): BP systolic 116–153; BP diastolic 81–111; PULSE 64–68; TEMP 36.2–36.7
[2023-12-02] MEDS: ENOXAPARIN SODIUM 40 MG/0.4 ML SYRINGE SUBQ (04:19)
[2023-12-02] MEDS: KETOROLAC TROMETHAMINE 30 MG/ML VIAL IVP ×2 (04:19→11:06)
[2023-12-02 05:55] LABS: Basophils Percent Auto 0.2 % (0.2-2.0); Hematocrit 30.6 % (36.0-48.0); Hemoglobin 9.7 g/dL (12.0-16.0); Immature Granulocytes Abs Auto 0.13 10^3/uL (0.00-0.03); Immature Granulocytes Pct Auto 0.7 % (0.0-0.5); Lymphocytes Absolute Auto 1.1 10^3/uL (1.2-3.8); Lymphocytes Percent Auto 5.5 % (20.5-60.0); Mean Corpuscular HGB Conc 31.7 g/dL (29.9-35.2); Mean Corpuscular Hemoglobin 25.2 pg (26.7-34.0); Mean Corpuscular Volume 79.5 fL (81.0-99.0); Mean Platelet Volume 12.6 fL (9.5-13.5); Monocytes Absolute Auto 0.6 10^3/uL (0.3-0.8); Monocytes Percent Auto 3.3 % (1.7-12.0); Neutrophils Absolute Auto 17.4 10^3/uL (1.4-6.5); Neutrophils Percent Auto 90.3 % (43.0-75.0); Platelet Count 214 10^3/uL (150-450); Red Blood Count 3.85 10^6/uL (4.20-5.40); Red Cell Distribution Width 13.3 % (11.0-15.0); White Blood Count 19.3 10^3/uL (4.0-11.0)
[2023-12-02] MEDS: ACETAMINOPHEN 500 MG TABLET 1000 MG PO ×2 (07:43→16:04)
--- NOTE | 2023-12-02 08:06 | PM.OBPN ---
OB - PN: Subj Subjective Patient comments: no complaints and pain well controlled [place] status: doing well Exam Constitutional Vital Signs, click to edit/add: Last Vital Signs Temp 97.2 F L 12/02/23 04:50 Pulse 0 L 12/01/23 19:12 Resp 18 12/02/23 04:50 BP 140/99 H 12/02/23 04:34 Pulse Ox 97 12/01/23 19:00 O2 Del Method Room Air 12/02/23 04:50 Documenting provider has reviewed patient's vital signs: yes Common normals: no apparent distress Respiratory Common normals: normal respiratory effort and clear to auscultation bilaterally Cardio Common normals: regular rate and regular rhythm GI Common normals: Normal to inspection, nondistended, normoactive bowel sounds present Extremity Common normals: no clubbing, cyanosis or edema and no calf tenderness Results Labs Labs: Short CBC 12/02/23 Range/Units 05:51 WBC 19.3 H (4.0-11.0) 10^3/uL Hgb 9.7 L (12.0-16.0) g/dL Hct 30.6 L (36.0-48.0) % Plt Count 214 (150-450) 10^3/uL Urinary Catheter Management Urinary Catheter Management Urethral: Cath placed during this visit: no OB - PN: A/P Plan - day: 1 Plan: routine postop care Time Spent with Patient Time: Total time spent is greater than 50% in coordination of care (as documented) at patient's floor/unit and/or counseling patient: Total time spent with greater than 50% in coordination of care (as documented) at patient's floor/unit and/or counseling patient: less than 15 minutes
[2023-12-02] MEDS: DOCUSATE SODIUM 100 MG CAPSULE PO (11:07)
[2023-12-02] MEDS: IBUPROFEN 400 MG TABLET 800 MG PO (19:30)
[2023-12-03] MEDS: ACETAMINOPHEN 500 MG TABLET 1000 MG PO ×2 (00:04→07:53)
[2023-12-03] MEDS: DOCUSATE SODIUM 100 MG CAPSULE PO ×2 (00:06→09:04)
[2023-12-03 00:07] VITALS: TEMP 36.3
[2023-12-03 00:08] VITALS: BP 119/62; PULSE 74
[2023-12-03] MEDS: IBUPROFEN 400 MG TABLET 800 MG PO ×2 (03:12→09:14)
--- NOTE | 2023-12-03 04:25 | P.OBPN_ITS ---
OB - PN: Subj Subjective Patient comments: no complaints and pain well controlled [place] status: doing well Exam Constitutional Vital Signs, click to edit/add: Last Vital Signs Temp 97.4 F L 12/03/23 00:07 Pulse 74 12/03/23 00:08 Resp 16 12/03/23 00:07 BP 119/62 12/03/23 00:08 Pulse Ox 97 12/01/23 19:00 O2 Del Method Room Air 12/03/23 00:07 Documenting provider has reviewed patient's vital signs: yes Common normals: no apparent distress Respiratory Common normals: normal respiratory effort and clear to auscultation bilaterally Cardio Common normals: regular rate and regular rhythm GI Common normals: Normal to inspection, nondistended, normoactive bowel sounds present Extremity Common normals: no clubbing, cyanosis or edema Results Labs Labs: Short CBC 12/02/23 Range/Units 05:51 WBC 19.3 H (4.0-11.0) 10^3/uL Hgb 9.7 L (12.0-16.0) g/dL Hct 30.6 L (36.0-48.0) % Plt Count 214 (150-450) 10^3/uL Urinary Catheter Management Urinary Catheter Management Urethral: Cath placed during this visit: no OB - PN: A/P Plan - day: 2 Plan: routine postop care, discharge home and other (fu 1wk, rx on chart, precautions given, cont lovenox for 6wks, ) Time Spent with Patient Time: Total time spent is greater than 50% in coordination of care (as documented) at patient's floor/unit and/or counseling patient: Total time spent with greater than 50% in coordination of care (as documented) at patient's floor/unit and/or counseling patient: less than 15 minutes
[2023-12-03] MEDS: ENOXAPARIN SODIUM 40 MG/0.4 ML SYRINGE SUBQ (04:33)
[2023-12-03 09:00] VITALS: BP 124/88; PULSE 68
[2023-12-03 09:11] VITALS: TEMP 36.9
== END 2023-12-03 10:55 | disposition home or self-care (01) | DRG 540 ==
PROVIDERS: Admitting Provider Obstetrics & Gynecology; Visit Provider Obstetrics & Gynecology
PROC: 10D00Z1 Extraction of Products of Conception, Low, Open Approach (ICD-10-PCS; CPT 59514; principal; 2023-12-01 15:30)
DX: O99.42 Diseases of the circulatory system complicating childbirth (principal); O76 Abnormality in fetal heart rate and rhythm complicating labor and delivery; Z37.0 Single live birth; I69.351 Hemiplegia and hemiparesis following cerebral infarction affecting right dominant side; Z87.891 Personal history of nicotine dependence; Z3A.38 38 weeks gestation of pregnancy; O99.344 Other mental disorders complicating childbirth; F41.9 Anxiety disorder, unspecified
CPT/HCPCS: 36415; 59050; 80307; 85025; 85027; 86850; 86870; 86880; 86885; 86900; 86901; 86905; 86906; 88307; 94667; 96365; 96366; 96372; 96375; 96376; J0131; J0665; J0690; J1100; J1650; J1885; J2274; J2405; J2590; J2765; J2795; Q0162

== ENCOUNTER 2024-01-12 10:50 | Outpatient (OUT) | payer OTHER, SELFPAY ==
--- OUTSIDE RECORDS SUMMARY | 2024-01-12 11:10 | XMS_ITS | CCD ---
Author Organization [facility] Care Team Providers Care Compliance Examiner Name Role Phone RILEY, APRIL Admitting Unavailable RILEY, APRIL Attending Unavailable RILEY APRIL Consulting Unavailable Mary Jo Seals MD Primary Care Provider MAGUE HOU Referring Unavailable MARY JO SEALS Primary Care Unavailable Riley, DO April Attending Provider Riley, April Admitting Unavailable Riley, April Attending Unavailable RILEY, APRIL Attending Unavailable NELIDA, APARNA Attending Unavailable RILEY, APRIL Attending Unavailable NELIDA, APARNA Attending Unavailable RILEY, APRIL Attending Unavailable RILEY, APRIL Attending Unavailable NELIDA, APARNA Attending Unavailable RILEY, APRIL Attending Unavailable RILEY, APRIL Attending Unavailable RILEY, APRIL Attending Unavailable NELIDA, APARNA Attending Unavailable RILEY, APRIL Attending Unavailable Problems Active Problems Problem [...] Da te Episodic/Chronic Other aftercare (1 source) skilled nursing (current) use of anticoagulants; 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: [PROGRAM PARAPROFESSIONAL CURRNT USE 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] Onset: 01-23-2017 Episodic Other [...] Results Test Name Value Interpretation Reference Range [facility] 12-01-2023 L Specimen: [id number] Received: 12/02/23 Status: SHANAE Magdaleno Num: [id number] Spec Type: Surgical Subm Dr: April Lin Tissues: A Placenta - 3rd Trimester (Greater than 28 weeks) (PLACENTA) Procedures: HE/3, Gross/Micro L5 Age/ Patient Sex Location Account Attending Physician Miracle Huffman 23/F [place] [id number] April Lin SPEC NUM: [id number] RECD: 12/02/23 STATUS: SHANAE MAGDALENO NUM: [id number] JOCELYNN: 12/01/[address]: April Lin ENTERED: 12/02/[address]: Jorge L,Lab SPEC TYPE: Surgical DEPT: JOSE MEZA ORDERED: HE/3, Gross/Micro L5 ORDERED: HE/3, Gross/Micro L5 Pathological Diagnosis Placenta removal, section delivery: -Mature third trimester placenta with three-vessel cord, appropriate for gestational age, 462 g -No evidence of acute chorioamnionitis, umbilical funisitis, or villitis -No any other significant histopathological findings except occasional minor nonspecific lymphocytic chronic inflammation in the decidual layer of the membranes Clinical Information 38w . Nonreassuring heart tones. Apgars 9/9. Mom had stroke at age 11. Gross Description Received in formalin labeled with the patient's name, date of and placenta is a kidd placental disc with attached membranes, and attached umbilical cord. The 16.8 x 1.2 cm, three-vessel, estrada umbilical cord inserts eccentrically into the chorionic plate, 2.6 cm from the placental disc margin. The cord has normal spiraling with no knots or lesions present. The marginally inserted, complete membranes are estrada, slippery and translucent with the point of rupture from the disc margin that cannot be determined. Intramembranous blood vessels are absent. The chorionic plate is geller-blue with patent vessels that span out magistrally over the surface. The maternal surface has intact, lobulated cotyledons. No loose or adherent ---- Specimen: [id number] Received: 12/02/23 Status: SHANAE Magdaleno Num: [id number] Spec Type: Surgical Subm Dr: April Lin Tissues: A Placenta - 3rd Trimester (Greater than 28 weeks) (PLACENTA) Procedures: HE/John, Gross/Micro L5 ---- Patient: Miracle Huffman [id number] (Continued) ---- Specimen: [id number] Received: 12/02/23 (Continued) Gross Description (Continued) Signed (signature on file) Jessica Horn MD 12/04/231922 ---- Specimen: [id number] Received: 12/02/23 Status: SHANAE Magdaleno Num: [id number] Spec Type: Surgical Subm Dr: April Lin Tissues: A Placenta - 3rd Trimester (Greater than 28 weeks) (PLACENTA) Procedures: /3, Gross/Micro L5 ---- Patient: Miracle Huffman [id number] (Continued) ---- Specimen: [id number] Received: 12/02/23 (Continued) Gross Description (Continued) blood clot is attached to the placental disc. The parenchyma is pink-red and spongiform. The 19.2 x 15.1 x 2.1 cm placental disc, devoid of membranes and cord, has a trimmed weight of 462 grams. Summary of sections: A1: umbilical cord at end and membrane roll including possible site of rupture A2: umbilical cord at placental end and parenchyma adjacent to cord insertion site A3: random mid-zonal section TW Microscopic Description Microscopic examinations are performed supporting the above interpretation CPT Codes 22514 ---- ---- Specimen: [id number] Received: 12/02/23 Status: SHANAE Magdaleno Num: [id number] Spec Type: Surgical Subm Dr: April Lin Tissues: A Placenta - 3rd Trimester (Greater than 28 weeks) (PLACENTA) Procedures: HE/John, Gross/Micro L5 ---- Patient: Miracle Huffman [id number] (Continued) ---- Signed (signature on file) Aydin-Luis Miguel Horn MD 12/04/231922 [facility] Miscellaneouson 08-28-2023 Send Out Report FORWARD TO [facility] Comment on above: Performed By: #### C MIS #### [address] [place] [address] Brake Adjuster: Arturo Chapin MD [facility] 08-27-2023 Test Name [facility] Comment on above: Performed By: #### C MIS #### [facility] [employer] [facility] [id number] Brake Adjuster: Arturo Chapin MD URETHRITIS/DISCHARGE PLUS VA GINITIS (HTRX)on 07-01-2023 ATOPOBIUM VAGINAE 0 [facility] ATOPOBIUM VAGINAE Not detected [facility] BVAB 2,3 (BACTERIAL VAGINOSIS ASSOCIATED BACTERIA 2, 3); MOBILUNCUS SPP 0 [facility] BVAB 2,3 (BACTERIAL VAGINOSIS ASSOCIATED BACTERIA 2, 3); MOBILUNCUS SPP Not detected [facility] FELIPE ALBICANS, PARAPSILOSIS, TROPICALIS 0 [facility] FELIPE ALBICANS, PARAPSILOSIS, TROPICALIS Not detected [facility] Healthcare FELIPE GLABRATA 0 [facility] Healthcare FELIPE GLABRATA Not detected [facility] FELIPE KRUSEI 0 [facility] FELIPE KRUSEI Not detected [facility] CHLAMYDIA TRACHOMATIS 0 [facility] CHLAMYDIA TRACHOMATIS Not detected [facility] GARDNERELLA VAGINALIS 0 [facility] GARDNERELLA VAGINALIS Not detected [facility] MEGASPHAERA (TYPES 1, 2) 0 [facility] MEGASPHAERA (TYPES 1, 2) Not detected [facility] MYCOPLASMA GENITALIUM 0 [facility] MYCOPLASMA GENITALIUM Not detected [facility] NEISSERIA GONORRHOEAE 0 [facility] NEISSERIA GONORRHOEAE Not detected [facility] TRICHOMONAS VAGINALIS 0 [facility] TRICHOMONAS VAGINALIS Not detected [facility] Urinalysis macro (dipstick) panel (U)on 06-29-2023 Bilirubin, UA Negative Negative - 4(70) +++ mg/dL [facility] Blood, UA Negative Negative - 50 Mikey/mcL [facility] Clarity, UA Clear [facility] Color, UA Yellow [facility] Glucose, UA Negative Negative - 2000(110) ++++ mg/dL [facility] Interpretation and review of laboratory results Normal [facility] Ketones, UA Negative Negative - 160(16) ++++ mg/dL [facility] Leukocytes, UA Negative Negative - 500+++ Yoel/mcL [facility] Nitrite, UA Negative Negative - Positive [facility] pH, UA 5.5 5 - 9 [facility] Protein, UA Trace Negative - 2000(20) ++++ mg/dL [facility] Spec Grav, UA 1.020 1 - 1.03 [facility] Urobilinogen, UA 1.0 0.2 - 12 mg/dL [facility] Vital Signs Date Time Vital Sign Value Performing Clinician Faci lity 06-29-2023 09:34-0500 Body mass index (BMI) [Ratio] 26.06 kg/m2 Aparna DE LOS SANTOS Work Phone: [facility] 06-29-2023 09:34-0500 Body weight 68.86 kg Aparna DE LOS SANTOS Work Phone: [facility] 06-29-2023 09:34-0500 Diastolic blood pressure 72 mm[Hg] Aparna DE LOS SANTOS Work Phone: [facility] 06-29-2023 09:34-0500 Systolic blood pressure 106 mm[Hg] Aparna DE LOS SANTOS Work Phone: [facility] Encounters Encounter Date Encounter Type Care Provider Facility Start: 01-06-2024 End: 01-06-2024 ambulatory APRIL LIN Not Available Start: 12-09-2023 End: 12-09-2023 ambulatory APARNA KRAUSE Not Available Start: 12-01-2023 End: 12-01-2023 ambulatory April Lin [facility] Work Phone: Start: 12-01-2023 End: 12-01-2023 Departed Referred DO April Riley Work Phone: [facility] Start: 11-25-2023 End: 11-25-2023 ambulatory APRIL RILEY Not Available Start: 11-18-2023 End: 11-18-2023 ambulatory APRIL RILEY Not Available Start: 11-04-2023 End: 11-04-2023 ambulatory APRIL RILEY Not Available Start: 10-21-2023 End: 10-21-2023 ambulatory APARNA KRAUSE Not Available Start: 10-06-2023 End: 10-06-2023 ambulatory APRIL RILEY Not Available Start: 09-23-2023 End: 09-23-2023 ambulatory APRIL RILEY Not Available Start: 08-27-2023 End: 08-27-2023 [facility] Start: 08-26-2023 End: 08-26-2023 ambulatory APARNA KRAUSE Not Available Start: 07-28-2023 End: 07-28-2023 ambulatory APRIL RILEY Not Available Start: 06-29-2023 External Result Encounter [...] Available Start: 06-01-2023 End: 06-01-2023 ambulatory APRIL RILEY Not Available Start: 05-01-2023 End: 05-01-2023 ambulatory APRIL RILEY Not Available Start: 01-20-2017 End: 01-20-2017 Patient encounter procedure APRIL SPENCEO Facility:[facility] Procedures Date Procedure Procedure Detail Performing Clinician Start: 06-29-2023 URETHRITIS/DISCHARGE PLUS VAGINITIS (HTRX) Aparna DE LOS SANTOS Work Phone: Start: 06-29-2023 Urnls dip stick/tabl et rgnt non-auto w/o micrscp Aparna DE LOS SANTOS Work Phone: Plan of Treatment Date Care Activity Detail Author Start: 07-28-2023 End: 07-28-2023 Patient encounter procedure 07/28/2023 10:40 AM EDT Routine [facility] [address] [place] [place] [address] Andrea Liny, [address] [place] [address] [facility] Start: 07-28-2023 End: 07-28-2023 Professional / ancillary services management 07/28/2023 9:30 AM EDT Ancillary Procedure [facility] [address] [place] [place] [address] [facility] Start: 06-29-2023 End: 09-27-2023 Alpha fetoprotein, maternal Alpha fetoprotein, maternal Lab Routine Screening, , for anatomic survey Expected: 06/29/2023 (Approximate), Expires: 09/27/2023 [facility] Comment on above: Expected: 06/29/2023 (Approximate), Expires: 09/27/2023 Start: 06-29-2023 End: 06-29-2024 US for US OB ANATOMY SINGLE W US OB CERVICAL LENGTH Imaging Routine Screening, , for anatomic survey Expected: 06/29/2023 (Approximate), Expires: 06/29/2024 [facility] Comment on above: Expected: 06/29/2023 (Approximate), Expires: 06/29/2024 Cytology Cervical or vaginal smear or scraping study Pap Smear Pathology and Cytology Routine Well woman exam with routine gynecological exam Ordered: 06/29/2023 [facility] Work Phone: Comment on above: Ordered: 06/29/2023 Payers Date Payer Category Payer Self-pay 2023 Medicaid [id number] 2001 Unknown [id number] 2.16. [id number] 2001 Unknown [id number] 2.16.84 0.1.572818.3.579.2.1259 2001 Unknown [id number] 2.16.84 0.1.332113.3.579.2.1258 2001 Unknown [id number] 2.16.84 0.1.967223.3.579.2.9 2001 Unknown [id number] 2.16.84 0.1.380576.3.579.2.1258 2001 Unknown [id number] 2.16.84 0.1.046748.3.579.2.1259 2001 Unknown [id number] 2.16.84 0.1.116038.3.579.2.1258 2001 Unknown [id number] 2.16.84 0.1.804267.3.579.2.9 2001 Unknown [id number] 2.16.84 0.1.628074.3.579.2.1258 2001 Unknown [id number] 2.16.84 0.1.693000.3.579.2.125 2001 Unknown [id number] 2.16.84 0.1.835269.3.579.2.1258 2001 Unknown [id number] 2.16.84 0.1.180051.3.579.2.1258 2001 Unknown [id number] 2.16.84 0.1.361163.3.579.2.1258 2001 Unknown [id number] 2.16.840 .1.191989.3.579.2.1259 1981 Unknown [id number] 2.16.84 0.1.992239.3.579.2.593 1959 Unknown [id number] Social History Date Type Detail Facility Tobacco smoking status NHIS Tobacco smoking consumption unknown [facility] Start: 06-29-2023 Alcohol intake Defer [facility] Start: 03-24-2023 [facility] Start: 2001 Sex Assigned At Not on file [facility] Gender identity Not on file [facility] Start: 2001 Sex Assigned At Female F [facility] History of Present illness Narrative 06-29-2023 [...] obtained without difficulty [facility]. Follow Up: Patient is to return to our office in 4 weeks for routine OB appointment Documented by Liz Hernandez LPN on behalf of: MAGALI Black documented in this encounter [facility] Evaluation note Note Date & Type Note Facility Evaluation note Diagnosis Second trimester state, incidental Screening, , for anatomic survey Encounter for anatomic survey Well woman exam with routine gynecological exam Routine gynecological examination documented in this encounter [facility] Evaluation note Note Date & Type Note Facility Evaluation note No assessment information availa [facility] Work Phone: Summary Purpose Family History No Family History Records FoundNo Family History Records FoundNo Family History Records FoundNo Family History Records Found Advance Directives No Advanced Directives Records FoundNo Advanced Directives Records FoundNo Advanced Directives Records FoundNo Advanced Directives Records Found Additional Source Comments INFORMATION SOURCE (unrecogn ized section and content) DATE CREATED AUTHOR 07/31/2018 [facility] DATE CREATED AUTHOR AUTHOR'S ORGANIZ ATION 11/13/2023 [facility] DATE CREATED AUTHOR AUTHOR'S ORGANIZ ATION 12/06/2023 [facility] DATE CREATED AUTHOR AUTHOR'S ORGANIZ ATION 01/08/2024 [facility] EPIC Reason for Visit (unrecogniz ed section and content) Reason Comments Routine Visit Care Teams (unrecognized sec tion and content) Compliance Examiner Relationship Specialty Start Date End Date Mary Jo Seals MD [address] [place] [address] PCP - General Family Medicine 02/24/23 Compliance Examiner Relationship Specialty Start Date End Date Mary Jo Seals MD [address] [place], [place] [id number] PCP - General Family Medicine 02/24/23 Team Status: Inactive Member Role Status Dates April Lin DO Attending Provider Active Start : December 01, 2023 End: December 01, 2023 Goals (unrecognized section and content) Goals may be documented in a n alternate section FOR RECORDS PERTAINING TO PATIENTS WHO ARE [...] BE BASED ON THE PRIMARY CLINICAL RECORDS. [facility] [employer] provides no warranty or guarantee of the accuracy or completeness of information in this document.
[2024-01-12 11:32] LABS: Basophils Percent Auto 0.8 % (0.2-2.0); Eosinophils Absolute Auto 0.2 10^3/uL (0.0-0.7); Eosinophils Percent Auto 3.5 % (0.9-7.0); Hematocrit 34.3 % (36.0-48.0); Hemoglobin 10.7 g/dL (12.0-16.0); Immature Granulocytes Abs Auto 0.01 10^3/uL (0.00-0.03); Immature Granulocytes Pct Auto 0.2 % (0.0-0.5); Lymphocytes Absolute Auto 1.7 10^3/uL (1.2-3.8); Lymphocytes Percent Auto 32.2 % (20.5-60.0); Mean Corpuscular HGB Conc 31.2 g/dL (29.9-35.2); Mean Corpuscular Hemoglobin 24.4 pg (26.7-34.0); Mean Corpuscular Volume 78.1 fL (81.0-99.0); Mean Platelet Volume 12.3 fL (9.5-13.5); Monocytes Absolute Auto 0.4 10^3/uL (0.3-0.8); Monocytes Percent Auto 6.9 % (1.7-12.0); Neutrophils Absolute Auto 2.9 10^3/uL (1.4-6.5); Neutrophils Percent Auto 56.4 % (43.0-75.0); Platelet Count 231 10^3/uL (150-450); Red Blood Count 4.39 10^6/uL (4.20-5.40); Red Cell Distribution Width 15.2 % (11.0-15.0); White Blood Count 5.2 10^3/uL (4.0-11.0)
[2024-01-12 11:39] LABS: BUN Creatinine Ratio 13.4; Calcium 9.1 mg/dL (8.5-10.1); Carbon Dioxide 28.6 mmol/L (21.0-32.0); Chloride 106 mmol/L (98-107); Estimated GFR (African America >60 (>=60); Estimated GFR (Non-African Ame >60 (>=60); Glucose 96 mg/dL (74-106); Potassium 3.6 mmol/L (3.5-5.1); Sodium 143 mmol/L (136-145)
[2024-01-12 11:46] LABS: INR 1.13; Partial Thromboplastin Time 28.9 sec (22.3-36.2); Prothrombin Time 11.8 sec (9.0-11.6)
== END 2024-01-12 10:51 | disposition home or self-care (01) ==
LOC: PST 10:50
PROVIDERS: Visit Provider Obstetrics & Gynecology
DX: Z01.812 Encounter for preprocedural laboratory examination (principal)
CPT/HCPCS: 80048; 85025; 85610; 85730

== ENCOUNTER 2024-01-22 06:15 | Day surgery (SDC) | payer OTHER, SELFPAY ==
[2024-01-12 11:31] VITALS: BP 132/85; PULSE 61; TEMP 36.3; O2SAT 97; BMI 25.6
[2024-01-22] VITALS (13 sets, daily range): BP systolic 141–183; BP diastolic 94–111; PULSE 73–120; TEMP 36.4–36.7; O2SAT 95–98; BMI 25.8
--- OUTSIDE RECORDS SUMMARY | 2024-01-22 06:18 | XMS_ITS | CCD ---
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 12-01-2023 L Specimen: [id number] Received: 12/02/23 Status: SHANAE Magdaleno Num: [id number] Spec Type: Surgical Subm Dr: Arpil Lin Tissues: A Placenta - 3rd Trimester (Greater than 28 weeks) (PLACENTA) Procedures: HE/3, Gross/Micro L5 Age/ Patient Sex Location Account Attending Physician Miracle Huffman 23/F [place] [id number] April Lin SPEC NUM: [id number] RECD: 12/02/23 STATUS: SHANAE MAGDALENO NUM: [id number] JOCELYNN: 12/01/[address]: April Lin ENTERED: [...] cotyledons. No loose or adherent ---- Specimen: [id number] Received: 12/02/23 Status: SHANAE Magdaleno Num: [id number] Spec Type: Surgical Subm Dr: April Lin Tissues: A Placenta - 3rd Trimester (Greater than 28 weeks) (PLACENTA) Procedures: HE/John, Gross/Micro L5 ---- Patient: Miracle Huffman [id number] (Continued) ---- Specimen: [id number] Received: 12/02/23 (Continued) Gross Description (Continued) Signed (signature on file) Jessiac Horn MD 12/04/231922 ---- Specimen: [id number] Received: 12/02/23 Status: SHANAE Magdaleno Num: [id number] Spec Type: Surgical Subm Dr: April Lin Tissues: A Placenta - 3rd Trimester (Greater than 28 weeks) (PLACENTA) Procedures: /3, Gross/Micro L5 ---- Patient: Miracle Huffman [id number] (Continued) ---- Specimen: [id number] Received: 12/02/23 (Continued) Gross Description (Continued) blood [...] performed supporting the above interpretation CPT Codes 61136 ---- ---- Specimen: [id number] Received: 12/02/23 Status: SHANAE Magdaleno Num: [id number] Spec Type: Surgical Subm Dr: April Lin Tissues: A Placenta - 3rd Trimester (Greater than 28 weeks) (PLACENTA) Procedures: HE/John, Gross/Micro L5 ---- Patient: Miracle Huffman [id number] (Continued) ---- Signed (signature on file) Aydin-Luis Miguel Hron MD 12/04/231922 [facility] Miscellaneouson 08-28-2023 Send Out Report FORWARD TO [facility] Comment on above: Performed By: #### C MIS #### [id number] [place] [address] Stone Rigger: Arturo Chapin MD [facility] 08-27-2023 Test Name [facility] Comment on above: Performed By: #### C MIS #### [facility] [employer] [id number] Stone Rigger: Arturo Chapin MD URETHRITIS/DISCHARGE PLUS VA GINITIS (HTRX)on 07-01-2023 ATOPOBIUM VAGINAE 0 [facility] ATOPOBIUM VAGINAE Not detected [facility] BVAB 2,3 (BACTERIAL VAGINOSIS ASSOCIATED BACTERIA 2, 3); MOBILUNCUS SPP 0 [facility] BVAB 2,3 (BACTERIAL VAGINOSIS ASSOCIATED BACTERIA 2, 3); MOBILUNCUS SPP Not detected [facility] FELIPE ALBICANS, PARAPSILOSIS, TROPICALIS 0 [facility] FELIPE ALBICANS, PARAPSILOSIS, TROPICALIS Not detected [facility] Healthcare FELIPE GLABRATA 0 [facility] FELIPE GLABRATA Not detected [facility] [...] 0 [facility] TRICHOMONAS VAGINALIS Not detected [facility] Urinalysis macro (dipstick) panel (U)on 06-29-2023 Bilirubin, UA Negative Negative - 4(70) +++ mg/dL [facility] Blood, UA Negative Negative - 50 Mikey/mcL [facility] Clarity, UA Clear [facility] Color, UA Yellow [facility] Glucose, UA Negative Negative - 2000(110) ++++ mg/dL [facility] Interpretation and review of laboratory results Normal [facility] Ketones, UA Negative Negative - 160(16) ++++ mg/dL [facility] Leukocytes, UA Negative Negative - 500+++ Yoel/mcL [facility] Nitrite, UA Negative Negative - Positive [facility] pH, UA 5.5 5 - 9 [facility] Protein, UA Trace Negative - 2000(20) ++++ mg/dL [facility] Spec Grav, UA 1.020 1 - 1.03 [facility] Urobilinogen, UA 1.0 0.2 - 12 mg/dL [facility] Vital Signs Date Time Vital Sign Value Performing Clinician Faci lity 06-29-2023 09:34-0500 Body mass index (BMI) [Ratio] 26.06 kg/m2 Aparna DE LOS SANTOS Work Phone: [facility] 06-29-2023 09:34-0500 Body weight 68.86 kg Aparna DE LOS SANTOS Work Phone: [facility] 06-29-2023 09:34-0500 Diastolic blood pressure 72 mm[Hg] Aparna DE LOS SANTOS Work Phone: [facility] 06-29-2023 09:34-0500 Systolic blood pressure 106 mm[Hg] Aparna DE LOS SANTOS Work Phone: [facility] Encounters Encounter Date Encounter Type Care Provider Facility Start: 01-06-2024 End: 01-06-2024 ambulatory APRIL LIN Not Available Start: 12-09-2023 End: 12-09-2023 ambulatory APARNA KRAUSE Not Available Start: 12-01-2023 End: 12-01-2023 ambulatory April Lin [facility] Work Phone: Start: 12-01-2023 End: 12-01-2023 Departed Referred DO April Riley Work Phone: [facility] Path [facility] [...] Start: 08-27-2023 End: 08-27-2023 [facility] Start: 08-26-2023 End: 08-26-2023 ambulatory APARNA [...] AM EDT Routine [facility] [address] [place] [address] Andrea Liny, [address] [place] [address] [facility] Start: 07-28-2023 End: 07-28-2023 Professional / ancillary services management 07/28/2023 9:30 AM EDT Ancillary Procedure [facility] [address] [facility] [place] [address] [facility] Start: 06-29-2023 End: 09-27-2023 Alpha fetoprotein, maternal Alpha fetoprotein, maternal Lab Routine Screening, , for anatomic survey Expected: 06/29/2023 (Approximate), Expires: 09/27/2023 [facility] Comment on above: Expected: 06/29/2023 (Approximate), Expires: 09/27/2023 Start: 06-29-2023 End: 06-29-2024 US for US OB ANATOMY SINGLE W US OB CERVICAL LENGTH Imaging Routine Screening, , for anatomic survey Expected: 06/29/2023 (Approximate), Expires: 06/29/2024 [facility] Comment on above: Expected: 06/29/2023 (Approximate), Expires: 06/29/2024 Cytology Cervical or vaginal smear or scraping study Pap Smear Pathology and Cytology Routine Well woman exam with routine gynecological exam Ordered: 06/29/2023 [facility] Work Phone: Comment on above: Ordered: 06/29/2023 Payers Date Payer Category Payer Self-pay 2023 Medicaid [id number] 2001 Unknown [id number] 2.16. [id number] 2001 Unknown [id number] 2.16.84 0.1.493458.3.579.2.1259 2001 Unknown [id number] 2.16.84 0.1.209579.3.579.2.1258 2001 Unknown [id number] 2.16.84 0.1.564383.3.579.2.9 2001 Unknown [id number] 2.16.84 0.1.477733.3.579.2.1258 2001 Unknown [id number] 2.16.84 0.1.852151.3.579.2.1259 2001 Unknown [id number] 2.16.84 0.1.679571.3.579.2.1258 2001 Unknown [id number] 2.16.84 0.1.311038.3.579.2.9 2001 Unknown [id number] 2.16.84 0.1.310453.3.579.2.1258 2001 Unknown [id number] 2.16.84 0.1.952975.3.579.2.125 2001 Unknown [id number] 2.16.84 0.1.360875.3.579.2.1258 2001 Unknown [id number] 2.16.84 0.1.567057.3.579.2.1258 2001 Unknown [id number] 2.16.84 0.1.847973.3.579.2.1258 2001 Unknown [id number] 2.16.840 .1.711629.3.579.2.1259 1981 Unknown [id number] 2.16.84 0.1.133070.3.579.2.593 1959 Unknown [id number] Social History Date Type Detail Facility Tobacco smoking status NHIS Tobacco smoking consumption unknown [facility] Start: 06-29-2023 Alcohol intake Defer [facility] Start: 03-24-2023 [facility] Start: 2001 Sex Assigned At Not on file [facility] Gender identity Not on file [facility] Start: 2001 Sex Assigned At Female F [facility] History of Present illness Narrative 06-29-2023 [...] of: MAGALI Black documented in this encounter [facility] Evaluation note Note Date & Type Note Facility Evaluation note Diagnosis Second trimester state, incidental Screening, , for anatomic survey Encounter for anatomic survey Well woman exam with routine gynecological exam Routine gynecological examination documented in this encounter [facility] Evaluation note Note Date & Type Note Facility Evaluation note No assessment information availa [facility] Work Phone: Summary Purpose Family History No Family History Records FoundNo Family History Records FoundNo Family History Records FoundNo Family History Records Found Advance Directives No Advanced Directives Records FoundNo Advanced Directives Records FoundNo Advanced Directives Records FoundNo Advanced Directives Records Found Additional Source Comments INFORMATION SOURCE (unrecogn ized section and content) DATE CREATED AUTHOR 07/31/2018 [facility] DATE CREATED AUTHOR AUTHOR'S ORGANIZ ATION 11/13/2023 [facility] DATE CREATED AUTHOR AUTHOR'S ORGANIZ ATION 12/06/2023 [facility] DATE CREATED AUTHOR AUTHOR'S ORGANIZ ATION 01/08/2024 [facility] Reason for Visit (unrecogniz ed section and content) Reason Comments Routine Visit Care Teams (unrecognized sec tion and content) Rink Rat Relationship Specialty Start Date End Date Mary Jo Seals MD [address] [place] [address] PCP - General Family Medicine 02/24/23 Rink Rat Relationship Specialty Start Date End Date Mary Jo Seals MD [address] [place], [place] [id number] PCP - General Family Medicine 02/24/23 Team [...] BE BASED ON THE PRIMARY CLINICAL RECORDS. [facility] [employer] provides no warranty or guarantee of the accuracy or completeness of information in this document.
[2024-01-22 06:26] LABS: Basophils Absolute Auto 0.1 10^3/uL (0.0-0.1); Basophils Percent Auto 1.1 % (0.2-2.0); Eosinophils Absolute Auto 0.3 10^3/uL (0.0-0.7); Eosinophils Percent Auto 5.4 % (0.9-7.0); Hematocrit 34.7 % (36.0-48.0); Hemoglobin 10.9 g/dL (12.0-16.0); Immature Granulocytes Abs Auto 0.01 10^3/uL (0.00-0.03); Immature Granulocytes Pct Auto 0.2 % (0.0-0.5); Lymphocytes Absolute Auto 2.3 10^3/uL (1.2-3.8); Lymphocytes Percent Auto 41.6 % (20.5-60.0); Mean Corpuscular HGB Conc 31.4 g/dL (29.9-35.2); Mean Corpuscular Hemoglobin 24.2 pg (26.7-34.0); Mean Corpuscular Volume 77.1 fL (81.0-99.0); Mean Platelet Volume 11.7 fL (9.5-13.5); Monocytes Absolute Auto 0.4 10^3/uL (0.3-0.8); Monocytes Percent Auto 7.9 % (1.7-12.0); Neutrophils Absolute Auto 2.4 10^3/uL (1.4-6.5); Neutrophils Percent Auto 43.8 % (43.0-75.0); Platelet Count 255 10^3/uL (150-450); Red Cell Distribution Width 15.4 % (11.0-15.0); White Blood Count 5.4 10^3/uL (4.0-11.0)
[2024-01-22] MEDS: LACTATED RINGER'S SOLUTION 1,000 ML 50 ML IV (06:57)
[2024-01-22 07:19] LABS: HCG Quantitative <1 mIU/mL
--- NOTE | 2024-01-22 08:27 | P.ON_ITS ---
Brief Operative Note Date of procedure: 01/22/24 Pre-op diagnosis general: DESIRES PERMANENT STERILIZATION, MULTIPARITY Post-op diagnosis: same as pre-op Procedure: NAME OF PROCEDURE: robotic assisted bilateral laparoscopic salpingectomy PROCEDURE: The patient was taken back to the Operating Room where she was given general anesthesia without difficulty. She was then prepped and draped in the normal sterile fashion after being placed in a dorsal lithotomy position. A wet sponge stick was placed into the patient's vagina. Attention was then turned to the patient's abdomen, where a scalpel was used to make a small infraumbilical incision. The S retractors were then used to dissect the underlying layers until the fascia could be seen. The fascia was then grasped with Mona clamps and tented up. A knife was then used to make a small incision to the fascia. The muscle was identified, at that time two sutures of #0 Vicryl on a GI needle was then used and placed through the fascia. the peritoneum was then identified and entered bluntly. The 10-4 Emily was then placed into the patient's abdomen. This was confirmed with direct visualization of the bowel, using the laparoscope. The patient's abdomen was then insufflated using approximately 4 liters of CO2 gas. Survey of the patient's abdomen demonstrated ovaries were normal in appearance as well as both tubes and uterus. A second and third rt and lt lateral robotic ports which were 8 mm in size, was then placed after the skin incision was made under direct visualization . the robotic arms were engaged. The patient's tube on the patient's right side was identified and tented up using a grasper, the ligasure apparatus was then used to come across the mesosalpingx from the fimbriated end to the insertion site at the uterus, the tube was then amputated and removed in its entirety. This was done on the contralateral side. The tubes were the removed from the patients abdomen. Excellent hemostasis was noted. The lateral ports were then moved under direct visualization with excellent hemostasis. All instruments were removed from the patient's abdomen. The fascia was closed using the #0 Vicryl on GI needle. The skin was closed using 4-0 Vicryl subcuticularly. All instruments were removed from the patient's vagina as well. The patient was taken out of the dorsal lithotomy position and placed in the supine position and taken to recovery in s table condition. Sponge, lap and needle counts were correct x2. Anesthesia: ISAELA Surgeon: Kameron Lin Human Resources Associate: Lakshmi Sampson Estimated blood loss (mL): 5 Pathology: other (TUBES) Condition: stable Disposition: PACU Urinary Catheter Management Urinary Catheter Management Urethral: Cath placed during this visit: no
[2024-01-22] MEDS: LACTATED RINGER'S SOLUTION 1,000 ML 125 ML IV (09:01)
[2024-01-22] MEDS: ENOXAPARIN SODIUM 40 MG/0.4 ML SYRINGE SUBQ (09:13)
--- NOTE | 2024-01-22 09:28 | PC.NURSE ---
DR POLANCO IS AWARE THAT PATIENT'S BLOOD PRESSURE IS ELEVATED THROUGH OUT TIME IN PHASE 1 AND SHE HAD BEEN ELEVATED DURING THE PROCEDURE WELL..
[2024-01-22] MEDS: HYDROCODONE/ACET 5-325 MG TABLET 1 TAB PO (10:31)
== END 2024-01-22 10:33 | disposition home or self-care (01) ==
PROVIDERS: Visit Provider Obstetrics & Gynecology
PROC: (CPT 840; principal; 2024-01-22 07:30)
DX: Z30.2 Encounter for sterilization (principal); Z87.891 Personal history of nicotine dependence
CPT/HCPCS: 58661; 36415; 84702; 85025; J0131; J1100; J1170; J1650; J1885; J2250; J2405; J2704; J3010